=== PATIENT | female | born 1985 | race Caucasian/White ===

== ENCOUNTER 2017-08-15 07:05 | Emergency (ER) | payer BC ==
[~2017-08-15] VITALS: Ht 165.1 cm; Wt 63.5 kg
[~2017-08-15 07:05] MED LIST: CLINDAMYCIN HC300 MG PO; IBUPROFEN800 MG PO; NAPROSYN500 MG PO; NORCO 5-325 TA1 EACH PO; PROVENTIL HFA6.7 GM INH
[2017-08-15] MEDS ORDERED: METHYLPREDNISOLO4 M1 PO (07:31)
[2017-08-15] MEDS ORDERED: KETOROLAC TROME10 MG PO (07:31)
[2017-10-30] MEDS ORDERED: GABAPENTIN600 MG PO (13:16)
[2017-10-30] MEDS ORDERED: DIFLUCAN100 MG PO (13:16)
== END 2017-08-15 07:38 | disposition home or self-care (01) ==
LOC: ED 07:05
DX: G89.29 Other chronic pain (principal); M79.641 Pain in right hand; J45.909 Unspecified asthma, uncomplicated; F17.200 Nicotine dependence, unspecified, uncomplicated; Z90.89 Acquired absence of other organs; Z88.6 Allergy status to analgesic agent
CPT/HCPCS: 99283

== ENCOUNTER 2019-02-23 18:25 | Emergency (ER) | payer BC ==
[~2019-02-23] VITALS: Ht 165.1 cm; Wt 63.5 kg
--- OUTSIDE RECORDS SUMMARY | ~2019-02-23 | XMS | Clinical Summary ---
Demographics + + + | Address | [address] | | | [place] [address] | + + + | Home Phone | | + + + | Preferred Language | Unknown | + + + | Marital Status | Unknown | + + + | Baptist Affiliation | Unknown | + + + | Race | Unknown | + + + | Ethnic Group | Unknown | + + + Author + + + | Author | [facility] | | | and [place] | + + + | Organization | [facility] | | | and [place] | + + + | Address | Unknown | + + + | Phone | Unavailable | + + + Support + + +---------+ + | Name | Relationship | Address | Phone | + + +---------+ + | Arlen Yañez | ECON | Unknown | | + + +---------+ + Care Team Providers + +------+ + | Care Chief Diversity Officer Name | Role | Phone | + +------+ + | Laura Carrasquillo PA-C | PP | | + +------+ + Allergies + + + + + + | Active Allergy | Reactions | Severity | Noted | Comments | | | | | Date | | + + + + + + | Aspirin | Swelling | High | 03/15/20 | Swelling of face | | | | | 18 | and throat | + + + + + + | Codeine | Other (See Comments) | | 03/15/20 | Too sedated | | | | | 18 | | + + + + + + Medications + + + +---------+------+------+-------+ | Medication | Sig | Dispensed | Refills | Star | End | Statu | | | | | | t | Date | s | | | | | | Date | | | + + + +---------+------+------+-------+ | gabapentin | Take 300 mg by mouth | | 0 | 02/23 | | Activ | | (NEURONTIN) 300 mg | 3 times daily. | | | 03/14 | | e | | capsule | | | | 18 | | | + + + +---------+------+------+-------+ | diclofenac | Take 75 mg by mouth | | 0 | | | Activ | | (VOLTAREN) 75 mg EC | 2 times daily. | | | | | e | | tablet | | | | | | | + + + +---------+------+------+-------+ | diclofenac | Apply 1-2 g | | 0 | | | Activ | | (VOLTAREN) 1% GEL | topically 4 times | | | | | e | | | daily. | | | | | | + + + +---------+------+------+-------+ | Green Tea-Hoodia | Take by mouth. | | 0 | | | Activ | | 315-12.5 MG CAPS | | | | | | e | + + + +---------+------+------+-------+ | ibuprofen (ADVIL, | Take 200 mg by mouth | | 0 | | | Activ | | MOTRIN) 200 mg | every 6 hours as | | | | | e | | tablet | needed for Pain. | | | | | | + + + +---------+------+------+-------+ | Multiple | Take by mouth. | | 0 | | | Activ | | Vitamins-Calcium | | | | | | e | | (ONE-A-DAY WOMENS | | | | | | | | FORMULA) TABS | | | | | | | + + + +---------+------+------+-------+ | | Take 1-2 tablets by | | 0 | | | Activ | | acetaminophen-codein | mouth every 6 hours | | | | | e | | e (TYLENOL #3) | as needed for Pain. | | | | | | | 300-30 mg per tablet | | | | | | | + + + +---------+------+------+-------+ Active Problems No known active problems Family History + + +------+ + | Medical History | Relation | Name | Comments | + + +------+ + | No known problems | Child | | | + + +------+ + | No known problems | Child | | | + + +------+ + | Brain cancer | Father | | Tumor | + + +------+ + | No known problems | Maternal | | | | | Grandfath | | | | | er | | | + + +------+ + | No known problems | Maternal | | | | | Grandmoth | | | | | er | | | + + +------+ + | Arthritis | Mother | | | + + +------+ + | Elevated lipids | Mother | | | + + +------+ + | No known problems | Paternal | | | | | Grandfath | | | | | er | | | + + +------+ + | No known problems | Paternal | | | | | Grandmoth | | | | | er | | | + + +------+ + + +------+ + + | Relation | Name | Status | Comments | + +------+ + + | Child | | Alive | | + +------+ + + | Child | | Alive | | + +------+ + + | Father | | | | | | | (Age | | | | | 35) | | + +------+ + + | Maternal Grandfather | | | | + +------+ + + | Maternal Grandmother | | | | + +------+ + + | Mother | | Alive | | + +------+ + + | Paternal Grandfather | | | | + +------+ + + | Paternal Grandmother | | | PNEUMONIA | | | | (Age | | | | | 58) | | + +------+ + + Social History + + + +--------+ + | Tobacco Use | Types | Packs/Day | Years | Date | | | | | Used | | + + + +--------+ + | Current Every Day | Cigarettes | 1 | 19 | Started: 03/15/1999 | | Smoker | | | | | + + + +--------+ + + +---+---+---+ | Smokeless Tobacco: | | | | | Never Used | | | | + +---+---+---+ + + +---------+ + | Alcohol Use | Drinks/We | oz/Week | Comments | | | ek | | | + + +---------+ + | No | | | | + + +---------+ + + + + | Sex Assigned at | Date Recorded | | | | + + + | Not on file | | + + + + + + + | Job Start Date | Occupation | Industry | + + + + | Not on file | Not on file | Not on file | + + + + + + + + | Travel History | Travel Start | Travel End | + + + + + + | No recent travel history available. | + + Last Filed Vital Signs + + + + | Vital Sign | Reading | Time Taken | + + + + | Blood Pressure | 120/84 | 03/15/20181511 PDT | + + + + | Pulse | 73 | 03/15/20181511 PDT | + + + + | Temperature | - | - | + + + + | Respiratory Rate | 16 | 03/15/20181511 PDT | + + + + | Oxygen Saturation | - | - | + + + + | Inhaled Oxygen | - | - | | Concentration | | | + + + + | Weight | 63.5 kg (140 lb) | 03/15/20181511 PDT | + + + + | Height | 165.1 cm (5' 5") | 03/15/20181511 PDT | + + + + | Body Mass Index | 23.3 | 03/15/20181511 PDT | + + + + Plan of Treatment + + + + + | Health Maintenance | Due Date | Last Done | Comments | + + + + + | Vaccine: | | | | | Dtap/Tdap/Td (1 - | 3 | | | | Tdap) | | | | + + + + + | Vaccine: | | | | | Pneumococcal 19-64 | 3 | | | | (PPSV23 only) Medium | | | | | Risk (1 of 1 - | | | | | PPSV23) | | | | + + + + + | Cervical Cancer | | | | | Screening (Pap) | 4 | | | + + + + + | Vaccine: Influenza | | | | | (Season Ended) | 9 | | | + + + + + Results Not on filefrom Last 3 Months Insurance +-------+--------+ +--------+-------+---------+------+ | Payer | Benefi | Subscriber | Effect | Phone | Address | Type | | | t Plan | ID | vinny | | | | | | / | | Dates | | | | | | Group | | | | | | +-------+--------+ +--------+-------+---------+------+ | BCBS | BCBS | [id number] | 04/25/20 | | | PPO | | | OOS | 1 | 15-Pre | | | | | | PPO | | sent | | | | +-------+--------+ +--------+-------+---------+------+ + +--------+ +--------+ + + | Guarantor Name | Accoun | Relation to | Date | Phone | Billing Address | | | t Type | Patient | of | | | | | | | | | | + +--------+ +--------+ + + | Annmarie Dodge | Person | Self [birth year] | [address] | | | [place] | | 1985 | [phone] | [place] [address] | | | rusty | | | 9 (Home) | | + +--------+ +--------+ + + Advance Directives Patient has advance care planning documents on file. For more information, please contact:[facility] [place] [address]
--- OUTSIDE RECORDS SUMMARY | ~2019-02-23 | XMS | Clinical Summary ---
Demographics + + + | Address | [address] | | | [place] [address] | + + + | Home Phone | | + + + | Preferred Language | Unknown | + + + | Marital Status | Unknown | + + + | Orthodox Affiliation | Unknown | + + + | Race | Unknown | + + + | Ethnic Group | Unknown | + + + Author + + + | Author | [facility] | | | and [place] | + + + | Organization | [facility] | | | and [place] [...] Team Providers + +------+ + | Care Rating Specialist Name | Role | Phone | + [...] +-------+--------+ +--------+-------+---------+------+ | BCBS | BCBS | [id number] | 04/25/20 | | | PPO | [...] | Self | [birth year] | [address] | | | [place] | | 1985 | [phone] | [place] [address] | | | rusty | | | 9 (Home) | | + +--------+ +--------+ + + Advance Directives Patient has advance care planning documents on file. For more information, please contact:[facility] [place] [address]
[~2019-02-23 18:25] MED LIST changes: +DIFLUCAN100 MG PO; +GABAPENTIN600 MG PO; +KETOROLAC TROME10 MG PO; +METHYLPREDNISOLO4 M1 PO
[2019-02-23] MEDS ORDERED: TYLENOL WITH C1 EACH PO (19:19)
[2019-02-23] MEDS ORDERED: ZITHROMAX250 MG PO (19:19)
[2019-02-23] MEDS ORDERED: SUDAFED 12 HOU120 MG PO (19:19)
== END 2019-02-23 19:31 | disposition home or self-care (01) ==
LOC: ED 18:25
DX: H66.92 Otitis media, unspecified, left ear (principal); J06.9 Acute upper respiratory infection, unspecified; F17.200 Nicotine dependence, unspecified, uncomplicated; Z88.6 Allergy status to analgesic agent
CPT/HCPCS: 99282

== ENCOUNTER 2022-10-13 08:23 | Day surgery (SDC) | payer BC ==
[~2022-10-13] VITALS: Ht 165.1 cm; Wt 68.2 kg
--- NOTE | ~2022-10-13 | OR ---
[facility] [address] [place], [place] [address] Draft DATE OF OPERATION: 10/13/2022 SURGEON: Julien Hubbard MD PREOPERATIVE DIAGNOSIS: Carpal tunnel syndrome, right. POSTOPERATIVE DIAGNOSIS: Carpal tunnel syndrome, right. PROCEDURE PERFORMED: Carpal tunnel release, right. VINEYARD TENDER: Rachael Leach PA-C. ANESTHESIA: Stover block. TOURNIQUET TIME: 20 minutes. BRIEF HISTORY: Yoshi is a 37-year-old female with progressive worsening of numbness and pain in her right wrist. Nerve conduction studies confirmed carpal tunnel and she wished to proceed with operative treatment after discussion of the risks and benefits. PROCEDURE IN DETAIL: Once consent was obtained, she was taken to the operating room. After adequate anesthesia, she was put left on day surgery bed. Hand table was brought in. The arm was prepped and draped in a standard sterile fashion and a 1.5 cm incision was made in the wrist crease carried through skin and subcutaneous tissue. The transverse carpal ligament was identified under loupe magnification and dissected free of overlying soft tissue. It was then released proximally a cm and distally to the distal extent under direct visualization DICTATION ENDS HERE. PATIENT NAME: YOSHI TOBIN OPERATIVE REPORT DATE OF : 83 REPORT #: [id number] PHYSICIAN: JULIEN HUBBARD MD PCP: EVIE EVERETT REPORT IS CONFIDENTIAL AND NOT TO BE RELEASED WITHOUT AUTHORIZATION [facility] [address] [place], [place] [address] Draft Julien Hubbard MD BA/ADELE /[id number] Copies: ~ PATIENT NAME: YOSHI TOBIN OPERATIVE REPORT DATE OF : 83 REPORT #: [id number] PHYSICIAN: JULIEN HUBBARD MD PCP: EVIE EVERETT REPORT IS CONFIDENTIAL AND NOT TO BE RELEASED WITHOUT AUTHORIZATION
--- NOTE | ~2022-10-13 | OR ---
[facility] [address] [place], [place] [address] Draft DATE OF OPERATION: 10/13/2022 SURGEON: Julien Hubbard MD PREOPERATIVE DIAGNOSIS: Carpal tunnel syndrome, right. POSTOPERATIVE DIAGNOSIS: Carpal tunnel syndrome, right. PROCEDURE PERFORMED: Carpal tunnel release, right. RING SPINNER: Rachael Leach PA-C. ANESTHESIA: [place] block. TOURNIQUET TIME: 20 minutes. BRIEF HISTORY: Yoshi is a 37-year-old female who has significant symptoms of carpal tunnel. Nerve conduction studies confirmed this. Risks and benefits of operative treatment were discussed with her and she elected to proceed. PROCEDURE IN DETAIL: Once consent was obtained she was taken to the operating room. After adequate anesthesia, she was placed on the day surgery bed with a hand table. The arm was prepped and draped in a standard sterile fashion. The carpal tunnel was approached through a 1.5 cm incision in the wrist crease. This was carried through skin and subcutaneous tissue. Palmaris longus was identified, retracted and protected. Transverse carpal ligament was identified under loupe magnification and dissected free of overlying soft tissue. It was then released proximally a cm and distally to the distal extent under direct visualization. The wound was copiously irrigated with normal saline, closed with 3-0 nylon and injected with 8 mL 0.25% plain Marcaine. Wound was dressed with bacitracin, Adaptic, 4 x 8s, and gauze. She tolerated the procedure well. All sponge, needle, and instrument counts were correct. PATIENT NAME: YOSHI TOBIN OPERATIVE REPORT DATE OF : [birth year] REPORT #: [id number] PHYSICIAN: JULIEN HUBBARD MD PCP: EVIE EVERETT REPORT IS CONFIDENTIAL AND NOT TO BE RELEASED WITHOUT AUTHORIZATION [address] [place], [place] [address] Draft Julien Hubbard MD BA/LINDA /[id number] Copies: ~ PATIENT NAME: YOSHI TOBIN OPERATIVE REPORT DATE OF : [birth year] REPORT #: [id number] PHYSICIAN: JULIEN HUBBARD MD PCP: EVIE EVERETT REPORT IS CONFIDENTIAL AND NOT TO BE RELEASED WITHOUT AUTHORIZATION
[~2022-10-13 08:23] MED LIST changes: +B12 ACTIVE1000 MCG PO; +CELEBREX200 MG PO; +SUDAFED 12 HOU120 MG PO; +TYLENOL WITH C1 EACH PO; +WELLBUTRIN XL300 MG PO; +ZITHROMAX250 MG PO
[2022-10-13] MEDS ORDERED: VENTOLIN HFA18 GM INH (08:36)
[2022-10-13] MEDS ORDERED: SUPER MULTIPLE1 EACH PO (08:37)
[2022-10-13] MEDS ORDERED: EMERGEN-C 1,01000 MG PO (08:38)
--- NOTE | 2022-10-13 10:27 | NUR ---
WENT IN ROOM TO CHECK ON PT SHE REPORTS SHE IS VERY HUGERY AND SHE IS THREATENING TO LEAVE. I ASURED HER IT SHOULD NOT BE TO MUCH LONGER AND WILL UPDATE HER SOON I HEAR ANYTHING, GAVE HER WARM BLANKET AND QUINTEN MONTERO.
[2022-10-13] MEDS ORDERED: HYDROCODON-ACE1 EA10 PO (11:37)
--- NOTE | 2022-10-13 12:00 | NUR ---
10/13/22 Evelin Garcia 1140-PT TO PACU IN SUPINE POSITION. EYES CLOSED WITH ORAL AIRWAY IN PLACE. PT DOES NOT RESPOND TO VERBAL OR TACTILE STIMULI. BREATHING EASY AND UNLABORED. SPO2 ?95% ON 10 L O2 VIA SIMPLE MASK. R HAND ELEVATED ON PILLOW. 1145- PT CONTINUES TO SLEEP WITH ORAL AIRWAY IN PLACE. DOES NOT RESPOND TO TACTILE OR VERBAL STIMULI. BREATHING EASY AND UNLABORED. SPO2 >95%. O2 TITRATED DOWN TO 6LPM VIA SIMPLE MASK. 1151- PT RESPONDS TO VERBAL AND TACTILE STIMULI. PT FOLLOWS COMMANDS. ORAL AIRWAY REMOVED. SPO2 >95% ON 6 LO2 VIA SIMPLE MASK. PT PROMPTED TO TAKE DEEP BREATHS, RETURN DEMONSTRATION OBSERVED. 1157- PT AWAKE ON AND OFF. PT DENIES PAIN AND NAUSEA. BREATHING EASY AND UNALBORED. SPO2 >95% O2 TITRATED DOWN TO ROOM AIR.
== END 2022-10-13 12:20 | disposition home or self-care (01) ==
LOC: DS 08:23
PROVIDERS: ATTEND Specialist
PROC: 01N50ZZ Release Median Nerve, Open Approach (ICD-10-PCS; principal; 2022-10-13 11:45)
DX: G56.01 Carpal tunnel syndrome, right upper limb (principal); F41.9 Anxiety disorder, unspecified; J45.909 Unspecified asthma, uncomplicated; F17.290 Nicotine dependence, other tobacco product, uncomplicated; Z79.899 Other long term (current) drug therapy
CPT/HCPCS: J0690; J1100; J1885; J2250; J2405; J2704; J2765; J3010; J7121